=== PATIENT | female | born 1995 | race Caucasian/White ===

== ENCOUNTER 2017-03-30 13:02 | Emergency (ER) | payer OTHER ==
[~2017-03-30] VITALS: Ht 157.5 cm; Wt 58.7 kg
[2017-03-30 13:09] VITALS: BP 133/47
== END 2017-03-30 16:52 | disposition home or self-care (01) ==
LOC: ED 13:02
DX: L84 Corns and callosities (principal)
CPT/HCPCS: J2001

== ENCOUNTER 2017-11-28 09:54 | Emergency (ER) | payer OTHER ==
[~2017-11-28] VITALS: Ht 157.5 cm; Wt 61.7 kg
[2017-11-28 09:58] VITALS: Ht 157.5 cm; Wt 61.7 kg
[2017-11-28 11:05] VITALS: BP 120/71
== END 2017-11-28 11:05 | disposition home or self-care (01) ==
LOC: ED 09:54
DX: S13.4XXA Sprain of ligaments of cervical spine, initial encounter (principal); R11.0 Nausea; R68.83 Chills (without fever); W22.8XXA Striking against or struck by other objects, initial encounter; Y93.89 Activity, other specified; Y92.89 Other specified places as the place of occurrence of the external cause; Y99.8 Other external cause status
CPT/HCPCS: J1885